=== PATIENT | female | born 1965 | race Caucasian/White ===

== ENCOUNTER 2019-07-31 10:35 | Outpatient (CLI) | payer MEDICARE, MEDICAID, SELFPAY ==
--- NOTE | 2019-07-31 10:38 | MM_ITS ---
WS: [id number] BILATERAL SCREENING DIGITAL MAMMOGRAM WITH CAD HISTORY: SCREENING COMPARISON: 05/06/2018 and 06/26/2016 Bilateral CC and MLO views submitted. Computer aided detection analyzed. Breast composition: There are scattered areas of fibroglandular density. No suspicious masses, microc alcifications or architectural distortion. Stable asymmetries within each breast. MM/[place] [id number] IMPRESSION: BI-RADS: 2-Benign FOLLOW UP: 1 Year Follow-up
== END 2019-07-31 10:36 | disposition home or self-care (01) ==
LOC: RADSHAW 10:35
PROVIDERS: PCP Nurse Practitioner Family; Visit Provider Nurse Practitioner Family
DX: Z12.31 Encounter for screening mammogram for malignant neoplasm of breast (principal)
CPT/HCPCS: 77067

== ENCOUNTER → 2019-08-11 14:42 | Outpatient (BNVA) | payer MEDICARE, MEDICAID, SELFPAY | PROVIDERS: PCP Nurse Practitioner Family; Visit Provider Nurse Practitioner Family | DX: J44.1 Chronic obstructive pulmonary disease with (acute) exacerbation (principal); R68.89 Other general symptoms and signs; G89.29 Other chronic pain | CPT/HCPCS: 87804 ==

== ENCOUNTER → 2020-03-17 15:37 | Outpatient (BNVA) | payer MEDICARE, MEDICAID, SELFPAY | PROVIDERS: PCP Nurse Practitioner Family; Referring Provider Nurse Practitioner Family; Visit Provider Internal Medicine Cardiovascular Disease | DX: I50.33 Acute on chronic diastolic (congestive) heart failure (principal); R06.02 Shortness of breath; M79.89 Other specified soft tissue disorders; I38 Endocarditis, valve unspecified; G47.10 Hypersomnia, unspecified; Z86.79 Personal history of other diseases of the circulatory system; E66.01 Morbid (severe) obesity due to excess calories; F17.210 Nicotine dependence, cigarettes, uncomplicated; I11.0 Hypertensive heart disease with heart failure | CPT/HCPCS: 80048; 83880; 85379 ==

== ENCOUNTER 2020-03-24 14:53 | Outpatient (CLI) | payer MEDICARE, MEDICAID, SELFPAY ==
--- NOTE | 2020-03-24 15:00 | USCV_ITS ---
Fide Charles Age: 55 Gender: F : 1965 Exam Date: 03/24/2020 15:12 Ordering Phys: Demar Saeed MD ([email or web address]) Technologist: MYRA HUYNH Exam Location: [facility] [place] Indication: bilat leg swelling PROCEDURES: Venous duplex imaging was performed in bilateral lower extremities. The following venous structures were evaluated: common femoral vein, profunda vein, proximal portion of the greater saphenous vein, superficial femoral vein, and the popliteal vein. In addition, the posterior tibial and peroneal trunk were evaluated. Serial compression, augmentation maneuvers, and spectral Doppler flow evaluation were performed. FINDINGS: Normal 2-D Doppler and augmentation and compressibility throughout the lower extremity venous structures. Additional imaging through the proximal calf veins also reveals no thrombus. Limited evaluation of the greater saphenous vein is patent with no thrombus.. CONCLUSIONS No evidence of DVT in the above-mentioned identifiable veins. Dr Demar Saeed MD [facility] (Electronically Signed) Final Date: 24 March 2020 23:34 S
== END 2020-03-24 14:54 | disposition home or self-care (01) ==
LOC: US 14:54
PROVIDERS: PCP Nurse Practitioner Family; Visit Provider Internal Medicine Cardiovascular Disease
DX: M79.89 Other specified soft tissue disorders (principal)
CPT/HCPCS: 93970

== ENCOUNTER 2020-04-09 14:47 | Outpatient (CLI) | payer MEDICARE, MEDICAID, SELFPAY ==
--- NOTE | 2020-04-09 15:45 | USCV_ITS ---
Fide Charles Age: 55 Gender: F : 1965 Exam Date: 04/09/2020 15:05 Ordering Phys: Demar Saeed MD Technologist: Angelita Song Exam Location: [facility] – [place], [place] Indication: SOB AND LEG SWELLING BP: 145 / 83 HR: 91 Rhythm: Sinus Technical Quality: Adequate MEASUREMENTS (Male / Female) Normal Values 2D ECHO LV Diastolic Diameter PLAX 4.0 cm 4.2 - 5.9 / 3.9 - 5.3 cm LV Systolic Diameter PLAX 3.0 cm LV Chamber Size 2.6 cm IVS Diastolic Thickness 1.7 cm 0.6 - 1.0 / 0.6 - 0.9 cm IVS Systolic Thickness 2.5 cm LVPW Diastolic Thickness 1.9 cm 0.6 - 1.0 / 0.6 - 0.9 cm LVPW Systolic Thickness 2.1 cm RV Chamber Size 1.9 cm LVOT Diameter 2.0 cm LV Ejection Fraction 2D Teich 51.8 % LV Ejection Fraction MOD 2C 73.8 % LV Ejection Fraction 2C AL 76.8 % LA Diameter 4.2 cm LA Width 2.3 cm LA Height 3.9 cm RA Width 2.1 cm RA Height 3.2 cm Aorta at Sinotubular Diameter 2.8 cm M-MODE LV Diastolic Diameter MM 5.2 cm 4.2 - 5.9 / 3.9 - 5.3 cm LV Systolic Diameter MM 3.0 cm LV Ejection Fraction MM Teich 73.2 % IVS Diastolic Thickness MM 1.4 cm 0.6 - 1.0 / 0.6 - 0.9 cm IVS Systolic Thickness MM 2.0 cm LVPW Diastolic Thickness MM 0.7 cm 0.6 - 1.0 / 0.6 - 0.9 cm LVPW Systolic Thickness MM 1.4 cm Aortic Annulus Diameter 2.9 cm LA Ao Ratio MM 1.4 MV E Point Septal Separation 0.6 cm DOPPLER AV Peak Velocity 129.0 cm/s LVOT Peak Velocity 98.0 cm/s AV Area Cont Eq vti 2.1 cm squared AV Area Cont Eq pk 2.4 cm squared MV Area PHT 9.6 cm squared Mitral E to A Ratio 0.8 MV E' Velocity 13.0 cm/s Mitral E to MV E' Ratio 6.0 Mitral E to LV E' Lateral Ratio 6.4 Mitral E to LV E' Septal Ratio 5.6 TR Peak Velocity 146.0 cm/s TR Peak Gradient 8.5 mmHg TV Peak E Velocity 57.0 cm/s Right Atrial Pressure 3.0 mmHg Pulmonary Artery Systolic Pressu 11.5 mmHg PV Peak Velocity 104.0 cm/s RV Acceleration Time 0.1 s RV Ejection Time 0.4 s RV AcT/ET 0.2 FINDINGS Left Ventricle Normal left ventricular size and systolic function, EF 64 %. Mild left ventricular hypertrophy. No regional wall motion abnormalities. Grade I/IV diastolic dysfunction (abnormal relaxation filling pattern), normal to mildly elevated filling pressures. Right Ventricle The right ventricle is normal in size and function. Right Atrium The right atrium is normal in size. Left Atrium Mildly increased left atrial size. Mitral Valve Structurally normal mitral valve without significant stenosis or prolapse. There is no mitral regurgitation. Aortic Valve Structurally normal aortic valve without significant sclerosis or stenosis. There is no aortic regurgitation. Tricuspid Valve Structurally normal tricuspid valve without significant stenosis or regurgitation. Pulmonary artery systolic pressure is normal. Pulmonic Valve Structurally normal pulmonic valve without significant stenosis. There is no pulmonic regurgitation. Pericardium Normal pericardium without effusion. Aorta Normal ascending aorta dimension. CONCLUSIONS Normal left ventricular size and systolic function, EF 64 %. Mild left ventricular hypertrophy. No regional wall motion abnormalities. Grade I/IV diastolic dysfunction (abnormal relaxation filling pattern), normal to mildly elevated filling pressures. Mildly increased left atrial size. No significant stenotic or regurgitant lesions. There is no pericardial effusion. No similar previous study is available for comparison. Corrected copy of the study report from 04/09/2020 Dr Demar Saeed MD [facility] (Electronically Signed) Final Date: 11 April 2020 19:11 Amended: 27 May 2020 22:38 C
== END 2020-04-09 14:48 | disposition home or self-care (01) ==
LOC: US 14:48
PROVIDERS: PCP Nurse Practitioner Family; Visit Provider Internal Medicine Cardiovascular Disease
DX: R06.02 Shortness of breath (principal); M79.89 Other specified soft tissue disorders; I51.81 Takotsubo syndrome
CPT/HCPCS: 93306

== ENCOUNTER 2020-05-25 07:04 | Outpatient (CLI) | payer MEDICARE, MEDICAID, SELFPAY ==
[2020-05-25 07:08] VITALS: BMI 47.9
--- NOTE | 2020-05-25 07:09 | ECG_ITS ---
[facility] Test Date: 2020-05-25 Pat Name: Fide Charles Department: Room: Gender: Female Fox Raiser: : 1965 Requested By: Demar Saeed Order Number: [id number] Amy MD: Demar Saeed M.D. Interpretive Statements NAME OF STUDY: LEXISCAN SESTAMIBI STRESS TEST INDICATION: Shortness of Breath PROCEDURE: At the baseline, the EKG revealed normal sinus rhythm with incomplete right bundle branch block. The baseline blood pressure was 155/92 mm Hg with a heart rate of 97 beats/min. Lexiscan was infused over a period of 20 seconds. A total of 0.4 milligrams of Lexiscan was infused. The stress phase was continued for a total of 5 minutes. Heart rate at the end of the stress phase was 105 with a blood pressure 171/95. The EKG at the peak infusion revealed no significant changes. Sestamibi was injected 20 seconds after the Lexiscan infusion. Blood pressure at the end of the recovery phase was 168/100 with a heart rate of 100 per minute. CONCLUSION: 1. No significant EKG changes with the LexiScan infusion 2. No LexiScan induced chest pain or cardiac arrhythmia 3. Normal blood pressure and heart rate response 4. Sestamibi/sestamibi perfusion scan pending; see separate report. Electronically Signed On 05-25-2020 20:50:22 [employer] MEMBER by Demar Saeed M.D. [email or web address]
--- NOTE | 2020-05-25 07:09 | NMCV_ITS ---
NM kimmie perf SPECT r/s* [id number] Fide Charles Age: 55 Gender: F : 1965 Exam Date: 05/25/2020 08:14 Ordering Phys: Demar Saeed MD ([email or web address]) Technologist: KHURRAM Lamas Exam Location: [facility] Indications: SHORTNESS OF BREATH STRESS TEST [facility] IMAGE PROTOCOL Rest/Stress 1 Lexiscan Day Radiopharmaceutical Dose (mCi) Administration Site Administered by Rest: Tc-99m 10.6 IV KHURRAM Bolden Sestamibi Stress:Tc-99m 32.9 IV KHURRAM Bolden Sestamibi Rest: 25-May-2020 60 Discovery 630 Stress: 25-May-2020 30 Discovery 630 0.4mg Lexiscan. Supine position only as patient was unable to lay prone. SPECT RESULTS Technical Quality: Excellent Raw Data Analysis: Normal Image Corrections: No attenuation or motion correction applied Summed Stress Score: 0 Summed Rest Score: 0 Summed Difference Score: 0 PERFUSION FINDINGS Patchy areas of slightly decreased tracer uptake are noted in the anterior wall and inferior wall regions, with no significant reversibility FUNCTIONAL RESULTS (calculated via Gated SPECT) Stress Image LV EF (%): 75 Stress EDV (mL):110 TID: 1.02 Stress ESV (mL):28 FUNCTIONAL FINDINGS: Segmental wall motion analysis revealing no gross wall motion abnormalities IMPRESSIONS 1. Myocardial perfusion imaging revealing patchy areas of persistent decreased tracer uptake in the anterior wall and inferior wall regions, most likely represent attenuation artifacts. 2. Normal LV ejection fraction of 75%. 3. LV wall motion analysis revealing no gross wall motion abnormalities. 4. Normal LV volume. No significant coronary ischemia, based on the above findings Dr Demar Saeed MD [facility] (Electronically Signed) Final Date: 25 May 2020 15:19 S
--- NOTE | 2020-05-25 09:07 | SUR.PREOP ---
Patient reported no pain or discomfort prior to the start of the procedure.
[2020-05-25] MEDS: regadenoson 0.4 Mg/5 ml Syringe IVP (09:14)
[2020-05-25 09:43] VITALS: BP 173/100; PULSE 99
== END 2020-05-25 07:05 | disposition home or self-care (01) ==
LOC: CDL 07:05
PROVIDERS: PCP Nurse Practitioner Family; Visit Provider Internal Medicine Cardiovascular Disease
DX: I38 Endocarditis, valve unspecified (principal); R06.02 Shortness of breath
CPT/HCPCS: 78452; 93017; A9500; J2785

== ENCOUNTER 2020-08-25 13:28 | Outpatient (CLI) | payer MEDICARE, MEDICAID, SELFPAY ==
--- NOTE | 2020-08-25 13:55 | CT_ITS ---
WS: [id number] NONCONTRAST CT LEFT KNEE TECHNIQUE: Noncontrast CT left knee with coronal and sagittal reformatted images. CLINICAL INFORMATION: ANTERIOR KNEE PAIN COMPARISON: None. DLP: 1275.[address] scans at [facility] use at least one of these dose optimization techniques: automat ed exposure control; mA and/or kV adjustment per patient size (includes targeted exams where dose is matched to clinical indication); or iterative reconstruction. FINDINGS: Noncontrast CT of the left knee with coronal and sagittal reformatted images. Normal anatomic alignme nt. Distal quadriceps and patella appear intact. Tiny suprapatellar effusion. Mild edema. Normal tibi al plateau. No tibial plateau fractures. Distal femoral shaft is normal in appearance. Normal patella . Incidental tiny fabella. Subchondral degenerative change involving the posterior lateral femoral cond yle. Partially visualized fibula is normal in appearance. CT/CT knee LT wo con* [id number] IMPRESSION: 1. Mild degenerative arthritis with medial and lateral compartment narrowing. 2. Hypertrophic patella. No acute patellar fractures. 3. Normal tibial plateau. Distal femurs normal in appearance. No acute appeari ng fractures. 4. Tiny suprapatellar effusion. Mild soft tissue edema. 5. Subchondral degenerative sclerosis involving the posterior lateral femoral condyle.
== END 2020-08-25 13:29 | disposition home or self-care (01) ==
LOC: RADWPI 13:33
PROVIDERS: PCP Nurse Practitioner Family; Visit Provider Nurse Practitioner Family
DX: M17.12 Unilateral primary osteoarthritis, left knee (principal); M25.462 Effusion, left knee; R60.0 Localized edema
CPT/HCPCS: 73700

== ENCOUNTER 2020-09-15 10:23 | Outpatient (CLI) | payer MEDICARE, MEDICAID, SELFPAY | END 2020-09-15 10:24 | disposition home or self-care (01) | LOC: RADWPI 09-17 16:11 | PROVIDERS: PCP Nurse Practitioner Family; Referring Provider Nurse Practitioner Family; Visit Provider Specialist | DX: M17.0 Bilateral primary osteoarthritis of knee (principal) | CPT/HCPCS: 73560; 73565 ==

== ENCOUNTER 2020-09-30 13:07 | Outpatient (CLI) | payer MEDICARE, MEDICAID, SELFPAY ==
--- NOTE | 2020-09-30 13:15 | IR_ITS ---
WS: [id number] LEFT KNEE ARTHROGRAM (FLUOROSCOPY) LEFT knee arthrogram was performed in fluoroscopy prior to CT evaluation. HISTORY: S89.90XA - Unspecified injury of unspecified lower leg, initial encounter COMPARISON: 08/25/2020 Procedure, risks and complications were explained to the patient. Complications include but not limit ed to bleeding, infection and contrast reaction. Current medications are reviewed. Skin is cleansed with ChloraPrep. Skin is anesthetized with 1% buffered lidocaine. 22-gauge needle is inserted into the lateral LEFT patellofemoral joint. Approximately 30 cc of Omnipaque 300 injected w ithout complication. Patient will proceed to CT evaluation immediately. No complications were encountered. Patient is instructed to watch for post procedure infection or ble eding. Patient is also instructed to contact the radiology department with any concerns. IR/[place] [id number] IMPRESSION: Uncomplicated LEFT knee joint injection prior to CT arthrogram.
--- NOTE | 2020-09-30 13:15 | CT_ITS ---
WS: [id number] CT LEFT KNEE ARTHROGRAM HISTORY: S89.92XA - Unspecified injury of left lower leg, initial encounter DLP: 1461.[address] scans at [facility] use at least one of these dose optimization techniques: automat ed exposure control; mA and/or kV adjustment per patient size (includes targeted exams where dose is matched to clinical indication); or iterative reconstruction. COMPARISON: 08/25/2020 Adequate injection into the knee joint. There is contrast moderately distending the knee joint. Mild narrowing of the medial and lateral compartments. In the medial compartment there is a radial te ar in the posterior horn. There is a small cartilage defect involving the medial femoral condyle. In the lateral compartment there is blunting of the free edge of the posterior horn. Large near complete defect involving the lateral tibial plateau cartilage. Lateral tibial plateau defect extends over a length of 7.7 mm. Mild narrowing of patellofemoral joint space. Very small superficial defects involving the cartilage of the patellar eminence of the lateral patellar facet. There is a small cartilage defects. Moderate size Guan's cyst. There is no loose bodies identified. CT/CT knee LT w con [id number] IMPRESSION: 1. Radial tear posterior horn medial meniscus. 2. Blunted free edge posterior horn lateral meniscus. 3. Moderate-sized cartilage defect lateral tibial plateau and smaller cartilag e defects medial femoral condyle. 4. Small superficial cartilage defects at the patellar eminence and lateral pa tellar facet. 5. Mild narrowing all 3 compartments, greatest involving the medial compartmen t with bony sclerosis.
[2020-09-30] MEDS: iohexol 300 mg/mL 50 mL Btl INTRA-ARTI (13:59)
== END 2020-09-30 13:08 | disposition home or self-care (01) ==
LOC: RADWPI 13:15
PROVIDERS: PCP Nurse Practitioner Family; Visit Provider Specialist
DX: S89.92XA Unspecified injury of left lower leg, initial encounter (principal); X58.XXXA Exposure to other specified factors, initial encounter; S83.242A Other tear of medial meniscus, current injury, left knee, initial encounter
CPT/HCPCS: 27369; 73701; 77002; Q9967

== ENCOUNTER 2020-10-27 06:00 | Outpatient (RCR) | payer MEDICARE, MEDICAID, SELFPAY | END 2020-11-16 23:00 | disposition home or self-care (01) | LOC: TPT 06:00 | PROVIDERS: PCP Nurse Practitioner Family; Referring Provider Specialist; Visit Provider Specialist | DX: M17.12 Unilateral primary osteoarthritis, left knee (principal) | CPT/HCPCS: 97161 ==

== ENCOUNTER → 2021-03-24 10:46 | Outpatient (BNVA) | payer MEDICARE, MEDICAID, SELFPAY | PROVIDERS: PCP Nurse Practitioner Family; Visit Provider Nurse Practitioner Family | DX: Z86.79 Personal history of other diseases of the circulatory system (principal); K21.9 Gastro-esophageal reflux disease without esophagitis; I10 Essential (primary) hypertension; E55.9 Vitamin D deficiency, unspecified; R53.83 Other fatigue | CPT/HCPCS: 80053; 80061; 82306; 82607; 84439; 84443; 85025; 86376 ==

== ENCOUNTER → 2021-05-16 11:54 | Outpatient (BNVA) | payer MEDICARE, MEDICAID, SELFPAY | PROVIDERS: PCP Nurse Practitioner Family; Visit Provider Nurse Practitioner Family | DX: R53.82 Chronic fatigue, unspecified | CPT/HCPCS: 80053; 82310; 83970; 84439; 84443; 86376 ==

== ENCOUNTER 2021-05-27 09:22 | Outpatient (CLI) | payer MEDICARE, MEDICAID, SELFPAY ==
--- NOTE | 2021-05-27 09:30 | CT_ITS ---
WS: [id number] CT scan of the head, 05/27/2021 Clinical Data: Z86.79 - Personal history of other diseases of the circul... Comparison: CT head, 08/09/2018. DLP: 1851.[address] scans at [facility] use at least one of these dose optimization techniques: automated e xposure control; mA and/or kV adjustment per patient size (includes targeted exams where dose is matc hed to clinical indication); or iterative reconstruction. Findings: The ventricular system is normal without shift. No recent infarct or hemorrhage is seen. There are no abnormal intracerebral masses. There are bilateral unchanged basal ganglia calcifications. There are bilateral aneurysm clips in the temporal and frontal lobes unchanged. There is a small area of contr ast in the left supraclinoid region seen best on axial image 18 of 56 measuring 0.6 cm which could re present an aneurysm, but it has not changed. The [place] of [place] appears to be intact but is difficu lt to visualize because of artifact. There is a left temporal craniotomy unchanged. The cerebellum an d brainstem are not remarkable. Bony windows of the skull and skull base show no fractures or erosions. The internal auditory canals, sella turcica, intraorbital contents, and paranasal sinuses are unremarkable. There is partial opaci fication of the right mastoid air cells. CT/CT head wo/w con [id number] Impression: 1. No change in 0.6 cm left supraclinoid contrast which may represent a small a neurysm. 2. No change in bilateral basal ganglier calcifications. 3. No change in bilateral aneurysm clips and left temporal craniotomy. 4. No change in opacification of right mastoid air cells.
--- NOTE | 2021-05-27 10:33 | MM_ITS ---
WS: [id number] Bilateral screening digital mammogram, 05/27/2021 Clinical Data: SCREENING Comparison: 07/31/2019, 05/06/2018, 06/26/2016, 09/30/2014, 08/06/2013, 03/29/2012, 03/23/2011, 03/16/201009/15. Findings: The breast parenchymal pattern shows fibroglandular tissue No spiculated masses or clustered calcific ations are seen. There are no secondary signs of carcinoma. MM/[place] [id number] Impression: 1. Negative bilateral mammogram unchanged. 2. Recommend annual screening mammograms. BIRADS: 1-Negative FOLLOW UP: 1 Year Follow-up The CAD dead mail checker was used.
== END 2021-05-27 09:23 | disposition home or self-care (01) ==
PROVIDERS: PCP Nurse Practitioner Family; Visit Provider Nurse Practitioner Family
DX: Z86.79 Personal history of other diseases of the circulatory system (principal); Z12.31 Encounter for screening mammogram for malignant neoplasm of breast
CPT/HCPCS: 70470; 77067; Q9967

== ENCOUNTER → 2021-11-18 10:09 | Outpatient (BNVA) | payer MEDICARE, MEDICAID, SELFPAY | PROVIDERS: PCP Nurse Practitioner Family; Visit Provider Nurse Practitioner Family | DX: K21.9 Gastro-esophageal reflux disease without esophagitis (principal); E55.9 Vitamin D deficiency, unspecified; I10 Essential (primary) hypertension; E04.1 Nontoxic single thyroid nodule; M25.561 Pain in right knee; M25.562 Pain in left knee; I38 Endocarditis, valve unspecified; J44.9 Chronic obstructive pulmonary disease, unspecified; Z71.6 Tobacco abuse counseling | CPT/HCPCS: 73562; 80053; 80061; 82306; 82607; 83735; 84439; 84443; 84481; 85025; 86376 ==

== ENCOUNTER → 2022-02-10 08:19 | Outpatient (BNVA) | payer MEDICARE, MEDICAID, SELFPAY | PROVIDERS: PCP Nurse Practitioner Family; Visit Provider Internal Medicine Infectious Disease | DX: T84.50XD Infection and inflammatory reaction due to unspecified internal joint prosthesis, subsequent encounter (principal); Y82.8 Other medical devices associated with adverse incidents | CPT/HCPCS: 80053; 82550; 85025; 86140 ==

== ENCOUNTER → 2022-02-15 11:15 | Outpatient (BNVA) | payer MEDICARE, MEDICAID, SELFPAY | PROVIDERS: PCP Nurse Practitioner Family; Referring Provider Internal Medicine Infectious Disease; Visit Provider Internal Medicine Infectious Disease | DX: T84.59XD Infection and inflammatory reaction due to other internal joint prosthesis, subsequent encounter (principal); Y83.8 Other surgical procedures as the cause of abnormal reaction of the patient, or of later complication, without mention of misadventure at the time of the procedure; E78.5 Hyperlipidemia, unspecified | CPT/HCPCS: 80053; 85025; 86141 ==

== ENCOUNTER → 2022-02-16 16:57 | Outpatient (BNVA) | payer MEDICARE, MEDICAID, SELFPAY | PROVIDERS: PCP Nurse Practitioner Family; Referring Provider Internal Medicine Infectious Disease; Visit Provider Internal Medicine Infectious Disease | DX: T84.59XD Infection and inflammatory reaction due to other internal joint prosthesis, subsequent encounter (principal); Y83.8 Other surgical procedures as the cause of abnormal reaction of the patient, or of later complication, without mention of misadventure at the time of the procedure | CPT/HCPCS: 86140 ==

== ENCOUNTER → 2022-02-21 10:46 | Outpatient (BNVA) | payer MEDICARE, MEDICAID, SELFPAY | PROVIDERS: PCP Nurse Practitioner Family; Visit Provider Internal Medicine Infectious Disease | DX: T84.50XD Infection and inflammatory reaction due to unspecified internal joint prosthesis, subsequent encounter (principal); Y83.8 Other surgical procedures as the cause of abnormal reaction of the patient, or of later complication, without mention of misadventure at the time of the procedure | CPT/HCPCS: 80053; 85025; 86140 ==

== ENCOUNTER → 2022-02-27 10:39 | Outpatient (BNVA) | payer MEDICARE, MEDICAID, SELFPAY | PROVIDERS: PCP Nurse Practitioner Family; Visit Provider Internal Medicine Infectious Disease | DX: T84.50XA Infection and inflammatory reaction due to unspecified internal joint prosthesis, initial encounter (principal) | CPT/HCPCS: 80053; 85025; 86140 ==

== ENCOUNTER → 2022-03-06 08:40 | Outpatient (BNVA) | payer MEDICARE, MEDICAID, SELFPAY | PROVIDERS: PCP Nurse Practitioner Family; Visit Provider Internal Medicine Infectious Disease | DX: T84.50XD Infection and inflammatory reaction due to unspecified internal joint prosthesis, subsequent encounter (principal) | CPT/HCPCS: 80053; 82550; 85025; 86140 ==

== ENCOUNTER → 2022-03-24 09:19 | Outpatient (BNVA) | payer MEDICARE, MEDICAID, SELFPAY | PROVIDERS: PCP Nurse Practitioner Family; Visit Provider Internal Medicine Infectious Disease | DX: T84.50XD Infection and inflammatory reaction due to unspecified internal joint prosthesis, subsequent encounter (principal); X58.XXXD Exposure to other specified factors, subsequent encounter | CPT/HCPCS: 80053; 82550; 85025; 86140 ==

== ENCOUNTER → 2022-03-31 10:37 | Outpatient (BNVA) | payer MEDICARE, MEDICAID, SELFPAY | PROVIDERS: PCP Nurse Practitioner Family; Visit Provider Nurse Practitioner Family | DX: J44.9 Chronic obstructive pulmonary disease, unspecified (principal); E55.9 Vitamin D deficiency, unspecified; I10 Essential (primary) hypertension; E04.1 Nontoxic single thyroid nodule; E66.01 Morbid (severe) obesity due to excess calories; M25.50 Pain in unspecified joint; K21.9 Gastro-esophageal reflux disease without esophagitis | CPT/HCPCS: 80053; 80061; 82306; 82607; 83036; 84439; 84443; 84550; 85025; 85651; 86038; 86140; 86200; 86431 ==

== ENCOUNTER → 2022-06-02 09:56 | Outpatient (BNVA) | payer MEDICARE, MEDICAID, SELFPAY | PROVIDERS: PCP Nurse Practitioner Family; Visit Provider Nurse Practitioner Family | DX: R52 Pain, unspecified (principal); E04.1 Nontoxic single thyroid nodule; T84.50XD Infection and inflammatory reaction due to unspecified internal joint prosthesis, subsequent encounter | CPT/HCPCS: 73562; 80053; 84439; 84443; 84481; 85025; 86140; 86376 ==

== ENCOUNTER 2022-06-23 10:33 | Outpatient (CLI) | payer MEDICARE, MEDICAID, SELFPAY ==
[2022-06-23] MEDS: iohexol 350 mg/mL 500 mL Btl (per mL) IV (10:36)
--- NOTE | 2022-06-23 10:45 | CT_ITS ---
WS: [id number] CT HEAD TECHNIQUE: Noncontrast and contrast-enhanced CT of the head. CLINICAL INFORMATION: Z86.79 - Personal history of other diseases of the circul... COMPARISON: 2020 DLP: 2207.[address] scans at [facility] use at least one of these dose optimization techniques: automated e xposure control; mA and/or kV adjustment per patient size (includes targeted exams where dose is matc hed to clinical indication); or iterative reconstruction. FINDINGS: Aneurysm clips results in significant beam hardening artifact in the inferior frontal lobes . No evidence of intracranial hemorrhage or mass effect. Ventricular system and basal cisterns are pelletier nt. Basal ganglia calcifications are unchanged. Prior postoperative changes LEFT frontal and temporal craniotomy. Bilateral MCA territory aneurysm clips. Ectatic LEFT supra clinoid ICA is unchanged. No abnormal intracranial enhancement. Advanced small ves kelsi changes. Mild parenchymal volume loss. Paranasal sinuses are well aerated. LEFT mastoid air cells are well aerated. Mild mucosal thickening in the RIGHT mastoid air cells. CT/CT head wo/w con [id number] IMPRESSION: 1. No changes compared to May 27, 2021. 2. Prior postoperative changes LEFT frontotemporal craniotomy with aneurysm cl ips and MCA territory. 3. Stable ectatic LEFT supraclinoid ICA is unchanged. 4. No abnormal intracranial enhancement. 5. Advanced small vessel changes with mild parenchymal volume loss. 6. Stable dense basal ganglia calcifications.
== END 2022-06-23 10:34 | disposition home or self-care (01) ==
LOC: RAD 10:34
PROVIDERS: PCP Nurse Practitioner Family; Visit Provider Nurse Practitioner Family
DX: Z86.79 Personal history of other diseases of the circulatory system (principal)
CPT/HCPCS: 70470; Q9967

== ENCOUNTER 2022-06-23 10:34 | Outpatient (CLI) | payer MEDICARE, MEDICAID, SELFPAY ==
--- NOTE | 2022-06-23 10:45 | MM_ITS ---
WS: [id number] BILATERAL SCREENING DIGITAL TOMOSYNTHESIS MAMMOGRAM WITH CAD HISTORY: SCREENING COMPARISON: 06/26/2016, 05/27/2021, 07/31/2019 Bilateral CC and MLO views with tomosynthesis and synthetic mammography submitted. Computer aided det ection analyzed. Breast composition: There are scattered areas of fibroglandular density. No suspicious masses, microc alcifications or architectural distortion. Bilateral intramammary lymph nodes. No suspicious masses o r calcifications. MM/[place] [id number] IMPRESSION: BI-RADS: 2-Benign FOLLOW UP: 1 Year Follow-up
== END 2022-06-23 10:35 | disposition home or self-care (01) ==
LOC: RAD 10:34
PROVIDERS: PCP Nurse Practitioner Family; Visit Provider Nurse Practitioner Family
DX: Z12.31 Encounter for screening mammogram for malignant neoplasm of breast (principal)
CPT/HCPCS: 77063; 77067

== ENCOUNTER → 2022-07-07 11:13 | Outpatient (BNVA) | payer MEDICARE, MEDICAID, SELFPAY | PROVIDERS: PCP Nurse Practitioner Family; Visit Provider Nurse Practitioner Family | DX: J02.9 Acute pharyngitis, unspecified (principal) | CPT/HCPCS: 87071; 87880 ==

== ENCOUNTER → 2022-10-04 17:18 | Outpatient (BNVA) | payer MEDICARE, MEDICAID, SELFPAY | PROVIDERS: PCP Nurse Practitioner Family; Visit Provider Nurse Practitioner Family | DX: M25.562 Pain in left knee (principal); E04.1 Nontoxic single thyroid nodule; E55.9 Vitamin D deficiency, unspecified | CPT/HCPCS: 80053; 82306; 82607; 84443; 85025; 85651; 86140 ==

== ENCOUNTER → 2023-01-15 13:19 | Outpatient (BNVA) | payer MEDICARE, MEDICAID, SELFPAY | PROVIDERS: PCP Nurse Practitioner Family; Visit Provider Nurse Practitioner Family | DX: E11.9 Type 2 diabetes mellitus without complications (principal); E04.1 Nontoxic single thyroid nodule; Z85.44 Personal history of malignant neoplasm of other female genital organs; Z11.59 Encounter for screening for other viral diseases; E55.9 Vitamin D deficiency, unspecified | CPT/HCPCS: 80053; 80061; 82306; 83036; 84443; 85025; 86376; 86803; 87624 ==

== ENCOUNTER → 2023-04-20 14:23 | Outpatient (BNVA) | payer MEDICARE, SELFPAY | PROVIDERS: PCP Nurse Practitioner Family; Visit Provider Nurse Practitioner Family | DX: M79.672 Pain in left foot (principal) | CPT/HCPCS: 73630 ==

== ENCOUNTER → 2023-06-22 13:11 | Outpatient (BNVA) | payer MEDICARE, SELFPAY | PROVIDERS: PCP Nurse Practitioner Family; Visit Provider Nurse Practitioner Family | DX: M25.561 Pain in right knee (principal); M17.11 Unilateral primary osteoarthritis, right knee | CPT/HCPCS: 73562 ==

== ENCOUNTER → 2023-09-07 10:41 | Outpatient (BNVA) | payer MEDICARE, SELFPAY | PROVIDERS: PCP Nurse Practitioner Family; Visit Provider Nurse Practitioner Family | DX: R05.9 Cough, unspecified (principal) | CPT/HCPCS: 71046 ==

== ENCOUNTER → 2023-09-12 13:55 | Outpatient (BNVA) | payer MEDICARE, SELFPAY | PROVIDERS: PCP Nurse Practitioner Family; Visit Provider Nurse Practitioner Family | DX: J18.9 Pneumonia, unspecified organism (principal) | CPT/HCPCS: 71046 ==

== ENCOUNTER → 2023-09-26 09:30 | Outpatient (BNVA) | payer MEDICARE, SELFPAY | PROVIDERS: PCP Nurse Practitioner Family; Visit Provider Nurse Practitioner Family | DX: E11.9 Type 2 diabetes mellitus without complications (principal); E04.1 Nontoxic single thyroid nodule; E55.9 Vitamin D deficiency, unspecified | CPT/HCPCS: 80053; 80061; 82306; 82607; 83036; 83735; 84439; 84443; 85025; 86376 ==

== ENCOUNTER 2023-09-27 12:10 | Outpatient (CLI) | payer MEDICARE, SELFPAY ==
--- NOTE | 2023-09-27 12:15 | CT_ITS ---
WS: [id number] CT HEAD TECHNIQUE: Noncontrast and contrast-enhanced CT of the head. CLINICAL INFORMATION: Z86.79 - Personal history of other diseases of the circul... COMPARISON: CT head 06/23/2022 and 2020 DLP: 2205.[address] scans at [facility] use at least one of these dose optimization techniques: automated e xposure control; mA and/or kV adjustment per patient size (includes targeted exams where dose is matc hed to clinical indication); or iterative reconstruction. FINDINGS: Aneurysm clips results in significant beam hardening artifact in the inferior frontal lobes. No evidence of intracranial hemorrhage or mass effect. Ventricular system and basal cisterns are pelletier nt. Basal ganglia calcifications are unchanged. Prior postoperative changes LEFT frontal and temporal craniotomy. Bilateral MCA territory aneurysm clips. Ectatic LEFT supra clinoid ICA is unchanged. No abnormal intracranial enhancement. A few stable incidental calcifications in the RIGHT frontal lobe. Advanced small vessel changes. Mild parenchymal volume loss. Paranasal sinuses are well aerated. LEFT mastoid air cells are well aerated. Mild mucosal thickening in the RIGHT mastoid air cells and ethmo id air cells. IMPRESSION: 1. No significant changes compared to previous. 2. Stable ectatic LEFT supraclinoid ICA is unchanged. 3. No abnormal intracranial enhancement. 4. Prior postoperative changes LEFT frontal craniotomy with aneurysm clips in the MCA territory. 5. Advanced small vessel changes with mild parenchymal volume loss. 6. Stable dense basal ganglia calcifications.
[2023-09-27] MEDS: iohexol 350 mg/mL 500 mL Btl (per mL) IV (12:33)
== END 2023-09-27 12:11 | disposition home or self-care (01) ==
LOC: RAD 12:10
PROVIDERS: PCP Nurse Practitioner Family; Visit Provider Nurse Practitioner Family
DX: Z86.79 Personal history of other diseases of the circulatory system (principal); Z98.890 Other specified postprocedural states; G23.8 Other specified degenerative diseases of basal ganglia; I67.89 Other cerebrovascular disease
CPT/HCPCS: 70470; 71046; Q9967

== ENCOUNTER 2023-10-03 12:45 | Outpatient (CLI) | payer MEDICARE, SELFPAY ==
--- NOTE | 2023-10-03 12:52 | XR_ITS ---
WS: [id number] SCREENING DEXA SCAN [facility] CLINICAL INFORMATION: ASYMPTOMATIC MENOPAUSAL STATE COMPARISON: None. FINDINGS: The L1-L4 bone mineral density measures 0.898 g/cm2. This corresponds to a T score score of -2.3 and Z score of -2.4. Left femoral neck bone mineral density measures 0.817 g/cm2. This corresponds to a T score of -1.5 an d Z score of -1.5. Right femoral neck bone mineral density measures 0.826 g/cm2. This corresponds to a T score -1.4of an d Z score of -1.4. Mean femoral neck bone mineral density measures 0.821 g/cm2. This corresponds to a T score of -1.5 an d Z score of -1.5. IMPRESSION: Osteopenia lumbar spine. Osteopenia femoral necks. Patient's FRAX calculated 10 year probability for major osteoporotic fracture is 13.5% and osteoporot ic hip fracture is 2.2%.
--- NOTE | 2023-10-03 12:52 | MM_ITS ---
WS: [id number] BILATERAL 3D TOMOSYNTHESIS DIGITAL SCREENING MAMMOGRAPHY WITH CAD CLINICAL INFORMATION: SCREENING HISTORY: Screening mammogram. No current complaints. COMPARISON: 2021 TECHNIQUE: Bilateral CC and MLO views. FINDINGS: Scattered fibroglandular densities bilaterally. No suspicious focal mass, asymmetry, calcifications, or architectural distortion. No evidence of malignancy. Stable incidental intramammary lymph nodes. IMPRESSION: MM/[place] [id number] BI-RADS: 2-Benign FOLLOW UP: 1 Year Follow-up Recommend return to annual screening mammography.
--- NOTE | 2023-10-03 12:52 | CT_ITS ---
WS: [id number] LDCT LUNG CANCER SCREENING HISTORY: NICOTINE DEPENDENCE,CIGARETTES TECHNIQUE: Axial imaging performed from the apices to 1 cm below the costophrenic angles. Coronal and sagittal reformats are submitted with axial MIP series. All CT scans at [facility] use at least one of these dose optimization techniques: automated exposure control; mA and/or kV adjustment per patient size (includes targeted exams where dose is matched to clinical indication); or iterativ e reconstruction. DLP: 186.69 mGy.cm DIvol: Mean CTDIvol: 5.20 (mGy) COMPARISON: None available. Diagnostic quality: Satisfactory Lungs: Thin platelike areas of atelectasis or scarring at the lung bases. Similar findings were also noted on the CT of 02/14/2015. Mild pleural thickening along the LEFT fissure. No mass or pulmonary no dule. No pneumonia. Heart: Normal size heart with no pericardial effusion.. Other findings: Mild atherosclerosis aorta. Pulmonary artery size is greater than the aorta. There ar e small mediastinal and hilar lymph nodes. No adrenal mass. IMPRESSION: CT/CT lung screening [id number] LUNG-RADS: 1S-Negative with Significant Findings FOLLOW UP: 12 Month: Continue annual screening with LDCT OTHER FINDINGS (S MODIFIER): Mildly dilated pulmonary artery suggesting pulmona ry hypertension.
== END 2023-10-03 12:46 | disposition home or self-care (01) ==
LOC: RAD 12:46
PROVIDERS: PCP Nurse Practitioner Family; Visit Provider Nurse Practitioner Family
DX: Z12.31 Encounter for screening mammogram for malignant neoplasm of breast (principal); Z12.2 Encounter for screening for malignant neoplasm of respiratory organs; F17.210 Nicotine dependence, cigarettes, uncomplicated; R92.323 Mammographic fibroglandular density, bilateral breasts; J98.11 Atelectasis; I28.8 Other diseases of pulmonary vessels
CPT/HCPCS: 71271; 77063; 77067; 77080

== ENCOUNTER 2023-10-24 09:12 | Outpatient (CLI) | payer MEDICARE, SELFPAY ==
--- NOTE | 2023-10-24 10:00 | USCV_ITS ---
Fide Charles Age: 58 Gender: F : 1965 Exam Date: 10/24/2023 10:04 Ordering Phys: Cami Petit RATING CLERK RATING CLERK Technologist: CT Exam Location: [facility] [place] Indication: pulmomary hypertension BP: 140 / 80 HR: 87 Rhythm: Sinus Technical Quality: Technically difficult study MEASUREMENTS (Male / Female) Normal Values 2D ECHO LVOT Diameter 2.0 cm LV Ejection Fraction MOD 2C 56.8 % LV Ejection Fraction 2C AL 58.2 % LA Diameter 3.7 cm RA Systolic Volume 4C AL 27.5 ml RA Systolic Volume 4C MOD 26.7 ml Aorta at Sinotubular Diameter 2.1 cm IVC Diameter 2.0 cm DOPPLER AV Peak Velocity 185.7 cm/s LVOT Peak Velocity 136.0 cm/s AV Area Cont Eq vti 2.4 cm squared AV Area Cont Eq pk 2.4 cm squared MV Peak Velocity 124.0 cm/s MV Area PHT 4.8 cm squared Mitral E to A Ratio 0.7 TR Peak Velocity 120.0 cm/s TR Peak Gradient 5.8 mmHg TV Peak E Velocity 98.0 cm/s Right Atrial Pressure 3.0 mmHg Pulmonary Artery Systolic Pressu 8.8 mmHg PV Peak Velocity 141.5 cm/s FINDINGS Left Ventricle Normal LV size ejection fraction of 57%.no regional wall motion abnormalities. Right Ventricle The right ventricle is normal in size and function. Right Atrium The right atrium is normal in size. Left Atrium The left atrium is normal in size. Mitral Valve Thickened mitral valve. Aortic Valve No gross abnormalities noted Tricuspid Valve No gross abnormalities noted. The PA pressure could not be calculated because of the poor Doppler signals Pulmonic Valve No gross abnormalities noted Pericardium Normal pericardium without effusion. Aorta Normal ascending aorta dimension. IVC Normal inferior vena cava. CONCLUSIONS Normal LV size ejection fraction of 57%. No regional wall motion abnormalities. Type I diastolic dysfunction. No gross valvular abnormalities Normal cardiac chamber sizes. The PA pressure could not be calculated because of the poor Doppler signals. There is no pericardial effusion. There are no intracardiac masses. Compared to the previous study from 04/04/2020, there may not be significant change Dr Demar Saeed MD FAC (Electronically Signed) Final Date: 25 October 2023 13:32 S
== END 2023-10-24 09:13 | disposition home or self-care (01) ==
LOC: RAD 09:13
PROVIDERS: PCP Nurse Practitioner Family; Visit Provider Nurse Practitioner Family
DX: J98.4 Other disorders of lung (principal)
CPT/HCPCS: 93306

== ENCOUNTER 2023-12-31 15:06 | Outpatient (CLI) | payer MEDICARE, SELFPAY ==
--- NOTE | 2023-12-31 16:15 | USCV_ITS ---
MelvinFide Age: 58 Gender: F : 1965 Exam Date: 12/31/2023 15:24 Ordering Phys: Cami Petit REFUSE LABORER REFUSE LABORER Technologist: CT Exam Location: [facility] – [place]_ Indication: swelling PROCEDURES: Venous duplex imaging was performed in bilateral lower extremities. Bilaterally, the common femoral, superficial femoral, profunda femoral, popliteal, posterior tibial, greater saphenous veins, and the peroneal trunk were identified and interrogated in the standard fashion. These veins were found to be easily compressible with spontaneous blood flow. No evidence of insufficiency or thrombus noted. FINDINGS: no dvt CONCLUSIONS No evidence of right lower extremity DVT. No evidence of left lower extremity DVT. Patric Gill MD (Electronically Signed) Final Date: 31 December 2023 17:32 S
== END 2023-12-31 15:07 | disposition home or self-care (01) ==
PROVIDERS: PCP Nurse Practitioner Family; Visit Provider Nurse Practitioner Family
DX: M79.89 Other specified soft tissue disorders (principal); R22.43 Localized swelling, mass and lump, lower limb, bilateral
CPT/HCPCS: 93970

== ENCOUNTER → 2024-05-16 11:35 | Outpatient (BNVA) | payer MEDICARE, SELFPAY | PROVIDERS: PCP Nurse Practitioner Family; Visit Provider Nurse Practitioner Family | DX: R30.0 Dysuria (principal); E11.9 Type 2 diabetes mellitus without complications | CPT/HCPCS: 80053; 80061; 81000; 83036; 84439; 84443; 84481; 85025 ==

== ENCOUNTER → 2024-06-26 13:41 | Outpatient (BNVA) | payer MEDICARE, SELFPAY | PROVIDERS: PCP Nurse Practitioner Family; Visit Provider Nurse Practitioner Family | DX: R39.9 Unspecified symptoms and signs involving the genitourinary system (principal) | CPT/HCPCS: 81000 ==

== ENCOUNTER → 2024-07-25 12:05 | Outpatient (BNVA) | payer MEDICARE, SELFPAY | PROVIDERS: PCP Nurse Practitioner Family; Visit Provider Nurse Practitioner Family | DX: E04.1 Nontoxic single thyroid nodule (principal) | CPT/HCPCS: 86376 ==

== ENCOUNTER → 2024-11-04 15:04 | Outpatient (BNVA) | payer MEDICARE, SELFPAY | PROVIDERS: PCP Nurse Practitioner Family; Visit Provider Nurse Practitioner Family | DX: R39.9 Unspecified symptoms and signs involving the genitourinary system (principal); N39.0 Urinary tract infection, site not specified | CPT/HCPCS: 81000; 87086 ==

== ENCOUNTER → 2024-11-21 11:27 | Outpatient (BNVA) | payer MEDICARE, SELFPAY | PROVIDERS: PCP Nurse Practitioner Family; Visit Provider Nurse Practitioner Family | DX: E11.9 Type 2 diabetes mellitus without complications (principal); E78.5 Hyperlipidemia, unspecified; E55.9 Vitamin D deficiency, unspecified; E66.01 Morbid (severe) obesity due to excess calories | CPT/HCPCS: 80053; 80061; 82306; 82607; 83036; 83735; 84443; 85025 ==

== ENCOUNTER 2024-12-24 12:08 | Outpatient (CLI) | payer MEDICARE, SELFPAY ==
--- NOTE | 2024-12-24 12:19 | MM_ITS ---
WS: [id number] BILATERAL 3D TOMOSYNTHESIS DIGITAL SCREENING MAMMOGRAPHY WITH CAD CLINICAL INFORMATION: SCREENING HISTORY: Screening mammogram. No current complaints. COMPARISON: 2023 TECHNIQUE: Bilateral CC and MLO views. FINDINGS: Scattered fibroglandular densities bilaterally. No suspicious focal mass, asymmetry, calcifications, or architectural distortion. No evidence of malignancy. A few incidental intramammary lymph nodes. MM/MM scr tomosynthesis [id number] IMPRESSION: DENSITY: There are scattered areas of fibroglandular density. BI-RADS: 2 - Benign. FOLLOW UP: 1 Year Follow-up Recommend return to annual screening mammography.
[2024-12-24] MEDS: iohexol 350 mg/mL 500 mL Btl (per mL) IV (12:36)
--- NOTE | 2024-12-24 13:00 | CT_ITS ---
WS: [id number] CT HEAD TECHNIQUE: Noncontrast and contrast-enhanced CT of the head. CLINICAL INFORMATION: I67.1 - Cerebral aneurysm, nonruptured COMPARISON: 09/27/2023 DLP: 2117.[address] scans at [facility] use at least one of these dose optimization techniques: automated exposure control; mA and/or kV adjustment per patient size (includes targeted exams where dose is matched to clinical indication); or iterative reconstruction. FINDINGS: Aneurysm clips results in significant beam hardening artifact in the inferior frontal lobes similar to previous. Prior postoperative changes LEFT frontal and temporal craniotomy. LEFT MCA aneurysm clipping. RIGHT MCA territory embolization coils unchanged compared to previous. Ectatic LEFT supra clinoid ICA is unchanged. No abnormal intracranial enhancement. A few stable incidental calcifications in the RIGHT frontal lobe are unchanged. Dense basal ganglia calcifications are unchanged. Advanced small vessel changes. Mild parenchymal volume loss. Mild mucosal thickening RIGHT mastoid air cells with a small amount of fluid and mucosal thickening in the RIGHT middle ear. LEFT mastoid air cells are well aerated. Paranasal sinuses are well aerated. Normal posterior nasopharynx. CT/CT head wo/w con [id number] IMPRESSION: 1. No significant changes compared to previous. No abnormal intracranial enhan cement. 2. Advanced small vessel changes with mild parenchymal volume loss. 3. Stable ectatic LEFT supraclinoid ICA. 4. Stable postoperative changes LEFT frontal craniotomy with aneurysm clips in the LEFT MCA territory. 5. Stable aneurysm embolization coils in the RIGHT MCA territory. 6. Stable dense basal ganglia calcifications.
--- NOTE | 2024-12-24 13:30 | CT_ITS ---
WS: [id number] LDCT LUNG CANCER SCREENING TECHNIQUE: Noncontrast CT of the chest with coronal and sagittal reformatted images. CLINICAL INFORMATION: F17.210 - Nicotine dependence, cigarettes, uncomplicated COMPARISON: 10/03/2023 DLP: 220.41 mGy.cm DIvol: Mean CTDIvol: 5.90 (mGy) All CT scans at [facility] use at least one of these dose optimization techniques: automated exposure control; mA and/or kV adjustment per patient size (includes targeted exams where dose is matched to clinical indication); or iterative reconstruction. FINDINGS: Subsegmental atelectasis in the lingula and LEFT lower lobe. No new suspicious pulmonary parenchymal abnormalities. Aortic calcification. Normal caliber thoracic aorta. Prominent main pulmonary arteries similar to previous and can be seen with pulmonary arterial hypertension. No mediastinal or hilar lymphadenopathy. No axillary lymphadenopathy. Tiny esophageal hiatal hernia. Food products in the stomach. Adrenal glands are normal. Mild thoracic curve. Anterior hypertrophic changes thoracic spine. CT/CT lung screening [id number] IMPRESSION: LUNG-RADS: 1-Negative FOLLOW UP: 12 Month: Continue annual screening with LDCT
== END 2024-12-24 12:09 | disposition home or self-care (01) ==
PROVIDERS: PCP Nurse Practitioner Family; Visit Provider Nurse Practitioner Family
DX: Z12.31 Encounter for screening mammogram for malignant neoplasm of breast (principal); I67.1 Cerebral aneurysm, nonruptured; Z12.2 Encounter for screening for malignant neoplasm of respiratory organs; F17.210 Nicotine dependence, cigarettes, uncomplicated; R92.323 Mammographic fibroglandular density, bilateral breasts; R59.0 Localized enlarged lymph nodes; R93.0 Abnormal findings on diagnostic imaging of skull and head, not elsewhere classified; I77.9 Disorder of arteries and arterioles, unspecified; Z98.890 Other specified postprocedural states; G23.8 Other specified degenerative diseases of basal ganglia; H74.8X1 Other specified disorders of right middle ear and mastoid; J98.11 Atelectasis; I70.0 Atherosclerosis of aorta; R93.89 Abnormal findings on diagnostic imaging of other specified body structures; M43.8X4 Other specified deforming dorsopathies, thoracic region; M89.38 Hypertrophy of bone, other site
CPT/HCPCS: 70470; 71271; 77063; 77067

== ENCOUNTER → 2025-01-19 11:18 | Outpatient (BNVA) | payer MEDICARE, SELFPAY | PROVIDERS: PCP Nurse Practitioner Family; Visit Provider Nurse Practitioner Family | DX: E11.9 Type 2 diabetes mellitus without complications (principal) | CPT/HCPCS: 80053 ==

== ENCOUNTER → 2025-01-29 09:19 | Outpatient (BNVA) | payer MEDICARE, SELFPAY | PROVIDERS: PCP Nurse Practitioner Family; Visit Provider Nurse Practitioner Family | DX: N18.9 Chronic kidney disease, unspecified (principal) | CPT/HCPCS: 80053 ==

== ENCOUNTER 2025-03-13 12:19 | Outpatient (CLI) | payer MEDICARE, SELFPAY ==
--- NOTE | 2025-03-13 15:00 | US_ITS ---
WS: [id number] RENAL ULTRASOUND HISTORY: N18.9 - Chronic kidney disease, unspecified COMPARISON: 08/30/2012 TECHNIQUE: 2-D and color Doppler imaging of the kidney submitted. Right kidney: 11.1 cm x 5.1 cm x 4.4 cm. Cortex: 1.3 cm Normal echogenicity with no hydronephrosis or mass. Left kidney: 10.7 cm x 5.1 cm x 4.9 cm. Cortex: 1.0 cm Normal echogenicity with no hydronephrosis or mass. Aorta: Normal. Urinary Bladder: Normal distention. US/US renal BI* [id number] IMPRESSION: Normal renal ultrasound.
== END 2025-03-13 12:20 | disposition home or self-care (01) ==
LOC: RAD 12:20
PROVIDERS: PCP Nurse Practitioner Family; Visit Provider Nurse Practitioner Family
DX: N18.9 Chronic kidney disease, unspecified (principal)
CPT/HCPCS: 76770

== ENCOUNTER → 2025-04-08 11:59 | Outpatient (BNVA) | payer MEDICARE, SELFPAY | PROVIDERS: PCP Nurse Practitioner Family; Visit Provider Nurse Practitioner Family | DX: E66.01 Morbid (severe) obesity due to excess calories (principal); E11.9 Type 2 diabetes mellitus without complications | CPT/HCPCS: 80053; 80061; 83036; 85025 ==

== ENCOUNTER → 2025-04-28 12:36 | Outpatient (BNVA) | payer MEDICARE, SELFPAY | PROVIDERS: PCP Nurse Practitioner Family; Visit Provider Nurse Practitioner Family | DX: N18.9 Chronic kidney disease, unspecified (principal) | CPT/HCPCS: 80048 ==